=== PATIENT | male | born 1985 | race Caucasian/White ===

== ENCOUNTER 2023-10-26 20:27 | Emergency (ER) | payer OTHER ==
[2023-10-26 20:41] VITALS: TEMP 98.5; BMI 29.1
[2023-10-26] MEDS ORDERED: KETOROLAC TROMETHAMINE 15 MG/ML VIAL ONE (22:29)
[2023-10-26] MEDS ORDERED: ACETAMINOPHEN INJECTION 100 ML IVPB ONE (22:29)
[2023-10-26] MEDS: KETOROLAC TROMETHAMINE 15 MG/ML VIAL IVPUSH ONE (22:37)
[2023-10-26 22:40] LABS: BASO % 0.9 % (0-2.0); EOS % 2.8 % (0-4.5); HEMATOCRIT 40.7 % (35.4-49); LYMPH % 39.8 % (8-40); MCH 32.8 pg (25.7-33.7); MCHC 34.4 g/dl (32.0-35.9); MEAN CELL VOLUME 95.3 fl (80-96); MONO % 11.8 % (3.8-10.2); NEUT % 44.7 % (42.8-82.8); PLATELET COUNT 362 10^3/uL (134-434); RBC 4.27 M/mm3 (4.00-5.60); RDW 12.9 % (11.9-15.9); WHITE BLOOD COUNT 6.5 K/mm3 (4.0-10.0)
[2023-10-26 22:52] LABS: ALBUMIN 3.9 g/dl (3.4-5.0)
[2023-10-26 22:53] LABS: BLOOD UREA NITROGEN 14.6 mg/dL (7-18)
[2023-10-26] MEDS: ACETAMINOPHEN 1000 MG/100 ML BAG IVPB ONE (22:56)
[2023-10-26 22:57] LABS: BILIRUBIN,TOTAL 0.4 mg/dL (0.2-1); TOT PROT 7.4 g/dl (6.4-8.2)
[2023-10-26] MEDS: ACETAMINOPHEN 500 MG TABLET (FP) PO ONE (22:57)
[2023-10-27 01:39] VITALS: BP 110/73; PULSE 71; RESP 16
== END 2023-10-27 02:25 | disposition home or self-care (01) ==
LOC: JER 20:27
PROC: 3E033NZ Introduction of Analgesics, Hypnotics, Sedatives into Peripheral Vein, Percutaneous Approach (ICD-10-PCS; principal; 2023-10-26)
PROC: 3E0333Z Introduction of Anti-inflammatory into Peripheral Vein, Percutaneous Approach (ICD-10-PCS; 2023-10-26)
DX: S70.11XA Contusion of right thigh, initial encounter (principal); W01.0XXA Fall on same level from slipping, tripping and stumbling without subsequent striking against object, initial encounter; Y93.66 Activity, soccer
CPT/HCPCS: 36415; 73701-TC-RT; 80053; 85025; 99285-25; J0131; Q9967